=== PATIENT | female | born 1995 | race Caucasian/White ===

== ENCOUNTER 2021-03-25 05:22 | Inpatient (IN) | payer OTHER, SELFPAY ==
[2021-03-25 05:52] VITALS: BMI 35.9
[2021-03-25] MEDS ORDERED: hydrALAZINE 20 MG/ML VIAL SLOW IVP PRN ×2 (06:38→14:52)
[2021-03-25] MEDS ORDERED: Promethazine HCl 25 MG/ML VIAL IM PRN (06:38)
[2021-03-25] MEDS ORDERED: Misoprostol 200 MCG TAB PR PRN (06:38)
[2021-03-25] MEDS ORDERED: Ondansetron PF 4 MG/2 ML Vial IVP PRN ×2 (06:38→14:52)
[2021-03-25] MEDS ORDERED: Methylergonovine 0.2 MG/ML VIAL IM PRN ×2 (06:38→14:52)
[2021-03-25] MEDS ORDERED: HYDROcodone/Acetaminophen 5/325 mg Tablet PO PRN ×4 (06:38→14:52)
[2021-03-25] MEDS ORDERED: Lactated Ringer's 1,000 ML IV PRN (06:38)
[2021-03-25] MEDS ORDERED: Butorphanol Tartrate 1 MG/ML VIAL SLOW IVP PRN (06:38)
[2021-03-25] MEDS ORDERED: Ibuprofen 800 MG TAB PO PRN (06:38)
[2021-03-25] MEDS ORDERED: Lidocaine 1% (PF) 30 ML VIAL SC PRN (06:38)
[2021-03-25] MEDS ORDERED: NS w/ Oxytocin 30 units 500 ML IV SCH ×2 (06:45→14:52)
[2021-03-25 07:44] LABS: Hemoglobin 13.8 g/dL (12.0-15.5); Mean Corpuscular HGB CONC 34.1 g/dL (32.0-36.0); Mean Corpuscular Hemoglobin 29.7 pg (27.0-33.0); Mean Corpuscular Volume 87.1 fl (81.6-98.3); Mean Platelet Volume 9.4 fl (7.4-10.4); Platelet Count 250 10x3/uL (150-450); RBC Distribution Width 12.8 % (11.5-14.5); Red Blood Cell (RBC) Count 4.65 10x6/uL (3.90-5.03); White Blood Cell (WBC) Count 15.1 10x3/uL (3.5-10.5)
[2021-03-25] MEDS ORDERED: Fentanyl 2 mcg/Bup 0.1% Cadd 100 ML ONE (08:18)
[2021-03-25 08:20] LABS: Hep B Surf Ag Non-Reactive S/CO (NonReactive)
[2021-03-25 08:21] LABS: Syphilis Antibody Nonreactive (Nonreactive); Syphilis Antibody Index 0.02 S/CO (<1.00 Non-Reactive)
[2021-03-25 09:11] LABS: HBSAg Index 0.14 S/CO (0-0.99)
[2021-03-25 11:15] LABS: SARS-CoV-2 NAA Rapid Test Not Detected (NotDetected)
[2021-03-25] MEDS ORDERED: Boostrix 0.5 ML (Tdap) VIAL IM ONE (14:52)
[2021-03-25] MEDS ORDERED: Lanolin Ointment 7 GM TUBE TOP PRN (14:52)
[2021-03-25] MEDS ORDERED: Benzocaine-Menthol 82.5 ML CAN TOP PRN (14:52)
[2021-03-25] MEDS ORDERED: Bisacodyl 10 MG SUPP PR PRN (14:52)
[2021-03-25] MEDS ORDERED: Misoprostol 200 MCG TAB VAG PRN (14:52)
[2021-03-25] MEDS ORDERED: Milk Of Magnesia 30 ML UDCUP PO PRN (14:52)
[2021-03-25] MEDS ORDERED: Sodium Chloride 0.9% (PF) 10 ML VIAL ONE (15:36)
[2021-03-25] MEDS ORDERED: Bupivacaine 0.25% HCL 30 ML VIAL ONE (15:36)
[2021-03-25] MEDS: Ferrous Sulfate 325 MG TAB PO SCH (16:59)
[2021-03-25] MEDS: Ibuprofen 800 MG TAB PO SCH (21:44)
[2021-03-25] MEDS: Docusate Calcium (SURFAK) 240 MG CAP PO SCH (21:45)
[2021-03-26] MEDS: Ibuprofen 800 MG TAB PO SCH ×2 (06:46→14:01)
[2021-03-26] MEDS ORDERED: Prenatal Vitamin 1 TAB PO SCH (09:00)
[2021-03-26] MEDS: Ferrous Sulfate 325 MG TAB PO SCH (09:14)
[2021-03-26] MEDS: Docusate Calcium (SURFAK) 240 MG CAP PO SCH (09:14)
[2021-03-26 11:53] VITALS: BP 119/57; TEMP 97.7
== END 2021-03-26 15:15 | disposition home or self-care (01) | DRG 807 ==
LOC: CSHLD/OP 05:22 → CSHLD 13:27 → CSHPED 14:40
PROVIDERS: ADMIT Obstetrics & Gynecology; ATTEND Obstetrics & Gynecology
PROC: 10E0XZZ Delivery of Products of Conception, External Approach (ICD-10-PCS; principal; 2021-03-25)
PROC: 0KQM0ZZ Repair Perineum Muscle, Open Approach (ICD-10-PCS; 2021-03-25)
DX: O48.0 Post-term pregnancy (principal); Z37.0 Single live birth; Z3A.40 40 weeks gestation of pregnancy; O70.1 Second degree perineal laceration during delivery
CPT/HCPCS: 36415; 85027; 86780; 86850; 86900; 86901; 87340; 99285; J2590; S0020; U0002